=== PATIENT | female | born 1975 | race Hispanic/Latino ===

== ENCOUNTER 2017-04-15 09:14 | Day surgery (SDC) | payer OTHER ==
[2017-04-14 16:04] VITALS: BMI 20.7
[2017-04-15 10:18] LABS: BASO # 0.1 K/uL (0.0-0.2); BASO % 0.8 % (0.0-2.0); EOS % 0.6 % (0.0-4.0); HEMOGLOBIN 13.4 g/dL (12.0-16.0); LYMPH # 2.8 K/uL (1.0-4.3); LYMPH % 41.5 % (20.0-40.0); MEAN CELL VOLUME 93.2 fl (81.0-99.0); MEAN CORPUSCULAR HEMOGLOBIN 31.9 pg (27.0-31.0); MEAN CORPUSCULAR HGB CONC 34.2 g/dL (33.0-37.0); MEAN PLATELET VOLUME 9.8 fl (7.2-11.7); MONO # 0.4 K/uL (0.0-0.8); MONO % 5.5 % (0.0-10.0); NEUT # 3.5 K/uL (1.8-7.0); NEUT % 51.6 % (50.0-75.0); NRBC % 0.1 % (0.0-0.0); RBC 4.19 Mil/uL (3.80-5.20); RED CELL DISTRIBUTION WIDTH 13.1 % (11.5-14.5); WHITE BLOOD COUNT 6.8 K/uL (4.8-10.8)
[2017-04-15 10:46] VITALS: RESP 18
[2017-04-15] MEDS ORDERED: Rocuronium 10 mg/ml (5 ml) ONE ×2 (11:28→11:59)
[2017-04-15] MEDS ORDERED: Succinylcholine 200 mg/10 ml Inj IV ONE ×2 (11:28→11:59)
[2017-04-15] MEDS ORDERED: Phenylephrine 10 mg/ml Inj ONE (11:31)
[2017-04-15] MEDS ORDERED: Lidocaine 4% (Laryng-O-Jet) Kit MM ONE ×2 (11:35→11:59)
[2017-04-15] MEDS ORDERED: Bupivacaine 0.5% Inj(30mL) ONE (11:42)
[2017-04-15] MEDS ORDERED: ePHEDrine 50 mg/ml Inj ONE (11:59)
[2017-04-15] MEDS ORDERED: Midazolam 2 MG/2 ML VIAL ONE (11:59)
[2017-04-15] MEDS ORDERED: Propofol 10 mg/ml Inj (20 ML) ONE (11:59)
[2017-04-15] MEDS ORDERED: Lactated Ringer's 1,000 ML IV ONE ×3 (12:20→15:00)
[2017-04-15] MEDS ORDERED: Dexamethasone 4 mg/1 ml ONE (12:49)
[2017-04-15] MEDS ORDERED: Bupivacaine 0.5% 50 ML IJ ONE (12:50)
[2017-04-15] MEDS ORDERED: Bupivacaine 0.5% Inj(30mL) IJ ONE (13:54)
[2017-04-15] MEDS ORDERED: Oxycodone/Acetaminophen 5/325 mg Tab PO PRN (14:02)
[2017-04-15] MEDS ORDERED: DiphenhydrAMINE 50 mg/ml Inj IVP PRN (14:05)
[2017-04-15] MEDS: HYDROmorphone 0.5 mg/0.5 ml ISec IVP PRN ×2 (14:07→14:17)
[2017-04-15] MEDS ORDERED: Lactated Ringer's 1,000 ML IV SCH (14:15)
[2017-04-15] MEDS ORDERED: Oxycodone/Acetaminophen 5/325 mg Tab PO ONE (15:20)
[2017-04-15 20:09] VITALS: BP 98/52; PULSE 85; TEMP 98; O2SAT 99
--- NOTE | 2017-04-20 11:42 | OP ---
PROCEDURE DATE: 04/15/2017 PREOPERATIVE DIAGNOSES: Pelvic pain, dysmenorrhea and history of endometriosis, rule out recurrent endometriosis. POSTOPERATIVE DIAGNOSES: Pelvic pain, dysmenorrhea and history of endometriosis, rule out recurrent endometriosis.. PROCEDURE PERFORMED: Cystoscopy with bilateral ureteral catheterization, hysteroscopy, robotic excision of endometriosis and peritoneal ablation. SURGEON: Alok North MD WINE BOTTLE INSPECTOR: Ramon Chaudhry MD INDICATION FOR THE PROCEDURE: The patient is a 41-year-old with a prior history of surgery for endometriosis. She presented for some recurrent symptoms and on exam she appeared to have some less tenderness on examination. Prior to surgery, the patient was counseled with the risks and benefits of procedure. She reaffirmed a desire to move forward with the surgery. She was taken the OR. DESCRIPTION OF THE PROCEDURE: After adequate anesthesia was obtained, the patient was placed in a dorsal lithotomy position and she was prepped and draped. The surgeon was gowned and gloved. A cystoscope was inserted into the bladder and under direct visualization, both ureters were visualized and there appeared to be a normal anatomical condition. There were no stones or any other areas of inflammation on the bladder and no evidence of interstitial cystitis. At this point, under direct visualization, a 5-Tai[place]ese open-ended catheter was inserted into the left ureter all the way to distal ureter and 5 mL of IC-Green was injected. The catheter was retrieved and the catheter was then inserted into right ureter all the way into the distal ureter and 5 mL of IC-Green were then injected. The catheter was then removed, a cystoscope was removed, and a 16-Tai[place]ese Hall was placed into the bladder. At this point, a speculum was placed into vagina. The anterior lip of the cervix was grasped and the cervix was gently dilated and a hysteroscope was inserted into the uterus revealing a normal cavity with no evidence of tumors or any other abnormality. At this point, attention was on the abdomen where an open laparoscopy was performed . The fascia was cut and the peritoneum was entered into a blunt fashion and a cannula was inserted. The abdomen was insufflate and under direct visualization, three additional ports were inserted right upper quadrant, left upper quadrant, and left mid quadrant. At this point, the full pelvis was visualized, the patient showed sign of postsurgical changes from a prior surgery. There was evidence of a small scar on the bladder. The liver and diaphragm were free of lesions and she showed sign of post appendectomy. At this point, da Polina robot was docked. The findings in the pelvis were as follows: Both ovaries appear to be normal. There appeared to be postsurgical changes with very thinned-out peritoneum. The uterus was covered in a white patina of inflammatory white tissue and there was one area of suspicious of endometriosis on the right pelvic sidewall below the ovary. This area was identified by visually and at this point, it was excised by entering the retroperitoneal area and dissecting off the ureter laterally and excising a swath of peritoneum containing the suspicious area. There were no other suspicious areas for endometriosis and areas of erythema and abnormal looking peritoneum were ablated utilizing the plasma energy. Also the area on the uterus with inflammatory changes were also ablated utilizing plasma energy. Also areas of the cul-de-sac were ablated, with exception of areas with denuded vessels. At this point, additional areas along the pelvic sidewalls of peritoneum were also ablated. At this point, she was checked for hemostasis and appeared to be excellent. All inflammatory areas were removed and the da Polina robot was undocked. The abdomen was disaffiliated, the instruments were removed, and the incision were closed in layers utilizing 0 PDS for the fascia and 4-0 Monocryl for the skin. At the end of the procedure all instruments counts were correct. The patient tolerated the procedure well and was taken to recovery room in excellent condition. Alok North MD [facility]
== END 2017-04-15 20:00 | disposition home or self-care (01) ==
LOC: H.OPSURG 09:14
PROVIDERS: ATTEND Obstetrics & Gynecology Reproductive Endocrinology
DX: N80.3 Endometriosis of pelvic peritoneum (principal); R10.2 Pelvic and perineal pain; N94.6 Dysmenorrhea, unspecified
CPT/HCPCS: 36415; 58563; 85025; 86850; 86900; 88305; C1729; J0330; J0690; J1100; J1170; J2001; J2250; J2405; J2704; J2765; J3010; J7030; J7040; J7120